=== PATIENT | female | born 1980 | race Caucasian/White ===

== ENCOUNTER 2016-07-05 14:17 | Emergency (ER) | payer MEDICAID, OTHER ==
--- NOTE | 2016-07-05 16:05 | ED.PDOC ---
History of Present Illness - General Chief Complaint: Respiratory Problem Stated Complaint: cough /congestion Time Seen by Provider: 07/05/16 16:04 Source: patient - History of Present Illness Allergies/Adverse Reactions: Allergies Eggs or Egg-derived Products Allergy (Verified 01/27/16 17:44) Wasp Venom Protein Adverse Reaction (Verified 01/27/16 17:44) Home Medications: Ambulatory Orders Imitrex 03/22/16 Mirapex 03/22/16 Mobic 03/22/16 Topamax 03/22/16 Past Medical History (General) - Patient Medical History Hx Seizures: No Hx Stroke: No Hx Dementia: No Hx Asthma: Yes Hx of COPD: No Hx Cardiac Disorders: No Hx Congestive Heart Failure: No Hx Pacemaker: No Hx Hypertension: Yes Hx Thyroid Disease: No Hx Diabetes: No Hx Gastroesophageal Reflux: No Hx Renal Disease: No Hx Cancer: No Hx of HIV: No Hx Hepatitis C: No Hx MRSA: No MRSA Source:: incision - Vaccination History Hx Tetanus, Diphtheria Vaccination: No Hx Influenza Vaccination: Yes - 2014 Hx Pneumococcal Vaccination: No - Social History Hx Tobacco Use: No - Female History Patient : No - tubal Family Medical History - Family History Mother Family History: Unknown Living Status: Unknown Departure - Departure Time of Disposition: 16:09 Disposition: Left Without Being Seen Home Medications: Ambulatory Orders Imitrex 03/22/16 Mirapex 03/22/16 Mobic 03/22/16 Topamax 03/22/16
--- NOTE | 2016-07-05 17:29 | ED.PDOC ---
History of Present Illness - General Chief Complaint: Respiratory Problem Stated Complaint: COUGH AND CONGESTION Time Seen by Provider: 07/05/16 16:04 Source: patient Exam Limitations: no limitations - History of Present Illness Initial Comments: stated that she got sick 5 days ago with cough /congestion which had bee getting worse,and also mom with flu like symptoms she was exposed . Timing/Duration: other - 5 days ago Severity: moderate Possible Cause: no prior episodes Improving Factors: nothing Worsening Factors: nothing Associated Symptoms: cough, nasal congestion Respiratory Risk Factors: exposure to illness Allergies/Adverse Reactions: Allergies Eggs or Egg-derived Products Allergy (Verified 01/27/16 17:44) Wasp Venom Protein Adverse Reaction (Verified 01/27/16 17:44) Home Medications: Ambulatory Orders Imitrex 03/22/16 Mirapex 03/22/16 Mobic 03/22/16 Topamax 03/22/16 Chlorpheniramine Maleate [Chlor-Trimeton] 8 mg PO TID #60 tab 07/05/16 Dextromet/Guaifenesin 600/30 T [Mucinex Dm 600/30MG] 1 tab PO BID #60 tab predniSONE [Prednisone] 10 mg PO BID #14 tab 07/05/16 Review of Systems - Review of Systems Constitutional: States: no symptoms reported EENTM: States: see HPI, nose congestion Respiratory: States: see HPI, cough Cardiology: States: no symptoms reported Gastrointestinal/Abdominal: States: no symptoms reported Genitourinary: States: no symptoms reported Musculoskeletal: States: joint pain Skin: States: no symptoms reported Hematologic/Lymphatic: States: no symptoms reported Past Medical History (General) - Patient Medical History Hx Seizures: No Hx Stroke: No Hx Dementia: No Hx Asthma: Yes Hx of COPD: No Hx Cardiac Disorders: No Hx Congestive Heart Failure: No Hx Pacemaker: No Hx Hypertension: Yes Hx Thyroid Disease: No Hx Diabetes: No Hx Gastroesophageal Reflux: No Hx Renal Disease: No Hx Cancer: No Hx of HIV: No Hx Hepatitis C: No Hx MRSA: No MRSA Source:: incision Surgical History: cholecystectomy, other - ,back,btl - Vaccination History Hx Tetanus, Diphtheria Vaccination: No Hx Influenza Vaccination: Yes - 2015 Hx Pneumococcal Vaccination: No - Social History Hx Tobacco Use: No - Female History Patient : No - tubal Family Medical History - Family History Mother Family History: Unknown Living Status: Unknown Hx Family Asthma: Yes Physical Exam - Physical Exam General Appearance: Alert, No apparent distress ENT Exam: hearing grossly normal, TMs normal, nasal congestion Neck: non-tender, supple, normal inspection, trachea midline Respiratory: chest non-tender, no respiratory distress, no accessory muscle use , wheezing - mild Cardiovascular/Chest: normal peripheral pulses, regular rate, rhythm, no edema, no gallop, no JVD Gastrointestinal/Abdominal: normal bowel sounds, non tender, soft Extremity: non-tender, normal inspection, no pedal edema, no calf tenderness Neurologic: alert, normal mood/affect, oriented x 3 Skin Exam: normal color, warm/dry, cyanosis Progress - Results/Orders Results/Orders: 07/05/16 17:34 INFLUENZA A & B ANTIGEN Stat Chest,2 Views [RAD] Stat Laboratory Results WBC 7.7 K/mm3 (4.8-10.8) 07/05/16 17:50 RBC 4.58 M/mm3 (4.20-5.40) 07/05/16 17:50 Hgb 14.3 gm/dL (12.0-16.0) 07/05/16 17:50 Hct 41.9 % (36.0-47.0) 07/05/16 17:50 MCV 91.4 fl (81.0-99.0) 07/05/16 17:50 MCH 31.3 pg (27.0-31.0) H 07/05/16 17:50 MCHC 34.2 g/dL (33.0-37.0) 07/05/16 17:50 RDW 12.9 % (11.5-14.5) 07/05/16 17:50 Plt Count 218 K/mm3 (130-400) 07/05/16 17:50 MPV 8.0 fl (7.40-10.4) 07/05/16 17:50 Absolute Neuts (auto) 4.80 K/uL (1.8-6.8) 07/05/16 17:50 Absolute Lymphs (auto) 1.90 K/uL (1.0-3.4) 07/05/16 17:50 Absolute Monos (auto) 0.50 K/uL (0.2-0.8) 07/05/16 17:50 Absolute Eos (auto) 0.40 K/uL (0.0-0.4) 07/05/16 17:50 Absolute Basos (auto) 0.10 K/uL (0.0-0.1) 07/05/16 17:50 Neutrophils % 62.3 % (42.0-78.0) 07/05/16 17:50 Lymphocytes % 24.7 % (20.0-50.0) 07/05/16 17:50 Monocytes % 6.5 % (2.0-9.0) 07/05/16 17:50 Eosinophils % 5.5 % (1.0-5.0) H 07/05/16 17:50 Basophils % 1.0 % (0.0-2.0) 07/05/16 17:50 FLU SWAB NEGATIVE - EKG/XRAY/CT XRAY: chest - no acute abnormality noted Departure - Departure Clinical Impression: Bronchitis with asthma, acute Time of Disposition: 19:22 Disposition: Left Without Being Seen Condition: Good Departure Forms: ED Discharge - Pt. Copy, Patient Portal Self Enrollment Instructions: Tips for Controlling Your Asthma, Asthma -- Adult Prescriptions: Chlorpheniramine Maleate [Chlor-Trimeton] 8 mg PO TID #60 tab Dextromet/Guaifenesin 600/30 T [Mucinex Dm 600/30MG] 1 tab PO BID #60 tab predniSONE [Prednisone] 10 mg PO BID #14 tab Home Medications: Ambulatory Orders Imitrex 03/22/16 Mirapex 03/22/16 Mobic 03/22/16 Topamax 03/22/16 Chlorpheniramine Maleate [Chlor-Trimeton] 8 mg PO TID #60 tab 07/05/16 Dextromet/Guaifenesin 600/30 T [Mucinex Dm 600/30MG] 1 tab PO BID #60 tab predniSONE [Prednisone] 10 mg PO BID #14 tab 07/05/16 Additional Instructions: RETURN TO EMERGENCY ROOM NEEDED; FOLLOW UP WITH PRIMARY MD 07/07/2016 PATIENT TO CALL FOR APPOINTMENT
--- NOTE | 2016-07-05 18:18 | RAD ---
EXAM DESCRIPTION: XR CHEST 2 VIEWS CLINICAL HISTORY: cough COMPARISON: January 27, 2016. FINDINGS: Cardiac silhouette is within normal limits. There is no focal parenchymal or pleural disease. There is no acute osseous process visualized. Partial absence of the distal left clavicle could be related to prior surgery. Linear opacity in the left mid lung may represent scar versus subsegmental atelectasis. IMPRESSION: Linear opacity in the left mid lung may represent scar versus subsegmental atelectasis. Electronically signed by: Robles Vann 07/05/2016 18:15
[2016-07-05 18:52] VITALS: TEMP 97.6
[2016-07-05] MEDS ORDERED: predniSONE 10 MG TAB PO ONE (19:32)
[2016-07-05] MEDS ORDERED: HYDROcodone 10MG/APAP 325MG 1 EA TAB PO ONE (19:43)
[2016-07-05 20:33] VITALS: O2SAT 98
[2016-07-05 20:37] VITALS: BP 110/70
== END 2016-07-05 20:30 | disposition left against medical advice (07) ==
LOC: ER 14:17
DX: J45.909 Unspecified asthma, uncomplicated (principal); I10 Essential (primary) hypertension; Z91.012 Allergy to eggs; Z91.030 Bee allergy status
CPT/HCPCS: 36415; 71020; 85025; 87804; J7512

== ENCOUNTER 2016-07-16 07:31 | Emergency (ER) | payer MEDICAID, OTHER ==
[2016-07-16] MEDS ORDERED: KETOROLAC TROMETHAMINE INJ 30 MG/ML VIAL IM ONE ×2 (07:45→07:46)
--- NOTE | 2016-07-16 07:51 | ED.PDOC ---
History of Present Illness - General Chief Complaint: Back Pain or Injury Stated Complaint: lower back pain Time Seen by Provider: 07/16/16 07:40 Source: patient Exam Limitations: no limitations - History of Present Illness Initial Comments: Patient is a 35 yo s/p cholecystectomy and multiple low back surgeries who presents with one day of right flank pain. It started in the flank and has since progressed to radiating to the right lower quadrant. Is constant but intermittent in intensity. Sharp in nature. No exacerbating nor alleviating factors. She says it seems to be independent of what she does. Is not like her previous back pain. Not associated with eating/drinking/N/V/D. Last bm yesterday which was normal with no blood. No hematuria/nocturia/dysuria/ frequency. No history of nephrolithiasis nor uretrolithiasis. No associated symptoms. Timing/Duration: 24 hours Severity: moderate Improving Factors: nothing Worsening Factors: nothing Associated Symptoms: denies symptoms Allergies/Adverse Reactions: Allergies Eggs or Egg-derived Products Allergy (Verified 01/27/16 17:44) Wasp Venom Protein Adverse Reaction (Verified 01/27/16 17:44) Home Medications: Ambulatory Orders NK [NK] 07/16/16 Review of Systems - Review of Systems Constitutional: States: no symptoms reported EENTM: States: no symptoms reported Respiratory: States: no symptoms reported Cardiology: States: no symptoms reported Gastrointestinal/Abdominal: States: no symptoms reported Genitourinary: States: no symptoms reported Musculoskeletal: States: see HPI Skin: States: no symptoms reported Neurological: States: no symptoms reported Endocrine: States: no symptoms reported Hematologic/Lymphatic: States: no symptoms reported Past Medical History (General) - Patient Medical History Hx Seizures: No Hx Stroke: No Hx Dementia: No Hx Asthma: Yes Hx of COPD: No Hx Cardiac Disorders: No Hx Congestive Heart Failure: No Hx Pacemaker: No Hx Hypertension: Yes Hx Thyroid Disease: No Hx Diabetes: No Hx Gastroesophageal Reflux: No Hx Renal Disease: No Hx Cancer: No Hx of HIV: No Hx Hepatitis C: No Hx MRSA: No MRSA Source:: incision Surgical History: cholecystectomy - Vaccination History Hx Tetanus, Diphtheria Vaccination: No Hx Influenza Vaccination: No Hx Pneumococcal Vaccination: No - Social History Hx Tobacco Use: Yes Hx Alcohol Use: No Hx Substance Use: No Hx Depression: No - Female History Patient is a Female of Child Bearing Age (10 -59 yrs old): Yes Patient : No - tubal Family Medical History - Family History Mother Family History: Unknown Living Status: Unknown Hx Family Asthma: Yes Physical Exam - Physical Exam General Appearance: Alert Neck: non-tender, full range of motion, supple Respiratory: chest non-tender, lungs clear, normal breath sounds Cardiovascular/Chest: normal peripheral pulses, regular rate, rhythm, no edema Gastrointestinal/Abdominal: normal bowel sounds, soft, tenderness - TTP over periumbilical region, other - Negative Rovsin's sign. Back Exam: normal inspection, no CVA tenderness, no vertebral tenderness Extremity: no pedal edema Skin Exam: normal color Lymphatic: no adenopathy Progress - Progress Progress: 07/16/16 07:52 Toradol 30 mg IM x one. 07/16/16 08:56 UA positive for blood, leukocytes, LE, nitrites. wbc wnl 07/16/16 09:48 CT showed stranding around the appendix. No nephrolithiasis. Patient given Zosyn 3.375 IV x one and Aztreonam 1 gram IV x one. NS started at 150 ml/hour. Patient transferred to [facility] in [place] for surgical consult. Departure - Departure Clinical Impression: Appendicitis Disposition: Transfer to Hospital Condition: Good Departure Forms: ED Discharge - Pt. Copy, Patient Portal Self Enrollment Diet: other - NPO Activity: other - as per surgical consult Referrals: SALLY GRAY [Primary Care Provider] - 1-2 Weeks Home Medications: Ambulatory Orders NK [NK] 07/16/16
[2016-07-16] MEDS ORDERED: MORPHINE SULFATE INJ 10 MG/ML VIAL IV ONE (08:56)
--- NOTE | 2016-07-16 09:36 | CT ---
EXAM DESCRIPTION: Abdomen and pelvis CT. CLINICAL HISTORY: Abdominal pain. COMPARISON: None. TECHNIQUE: A noncontrast volumetric CT was acquired and displayed in multiplanar reconstructions. Note that the sensitivity of this exam is slightly diminished without contrast. FINDINGS: GI: Strandy changes noted adjacent to the tip of the appendix. The colon is otherwise unremarkable. Small bowel is unobstructed. Liver: Fatty infiltration of the liver. Liver is also enlarged measuring 20 cm in diameter. Biliary: Patient is status post cholecystectomy. Spleen: Splenomegaly. The spleen measures 15 cm in diameter. Pancreas: Unremarkable. Adrenal Glands: No significant nodularity. Kidneys: No hydronephrosis or urolithiasis. Pelvic organs: Unremarkable. Bones: No suspicious lesion/fracture. Lymph nodes: No enlarged lymph nodes. Lung bases: No significant consolidation or nodularity. IMPRESSION: Strandy changes noted adjacent to the tip of the appendix. This can be seen in setting of appendicitis. No evidence of abscess. No evidence of perforation. No renal stones noted on today's exam. Fatty infiltration of the liver noted. There is also hepatosplenomegaly. Electronically signed by: Ha Nick MD 07/16/2016 09:34
[2016-07-16] MEDS ORDERED: PIPERACILLIN/TAZOBACTAM 3.375 GM in SODIUM CHLORIDE 0.9% 100ML 100 ML IVPB ONE (09:46)
[2016-07-16] MEDS ORDERED: AZTREONAM 1 GM in SODIUM CHL 0.9% 50ML MIN-BAG+ 50 ML IVPB ONE (09:46)
[2016-07-16] MEDS ORDERED: SODIUM CHLORIDE 0.9% 1000ML 1,000 ML IVS PRN (09:47)
[2016-07-16] MEDS ORDERED: AZTREONAM 1 GM VIAL ONE (09:50)
[2016-07-16] MEDS ORDERED: SODIUM CHLORIDE 0.9% 100ML 100 ML IVPB ONE (09:50)
[2016-07-16] MEDS ORDERED: PIPERACILLIN/TAZOBACTAM 3.375 GM VIAL IVPB ONE (09:50)
[2016-07-16] MEDS ORDERED: SODIUM CHL 0.9% 50ML MIN-BAG+ 50 ML IVPB ONE (09:50)
[2016-07-16] MEDS ORDERED: ONDANSETRON INJ 4 MG/2 ML VIAL IV ONE (09:54)
[2016-07-16 10:26] VITALS: BP 114/75; TEMP 97.5; O2SAT 95
== END 2016-07-16 10:26 | disposition short-term general hospital (02) ==
LOC: ER 07:31
DX: K37 Unspecified appendicitis (principal); J45.909 Unspecified asthma, uncomplicated; I10 Essential (primary) hypertension; Z91.030 Bee allergy status; Z91.012 Allergy to eggs; Z87.891 Personal history of nicotine dependence
CPT/HCPCS: 36415; 74176; 80053; 81001; 81025; 83690; 85025; 87086; 87088; 87186; J1885; J2270; J2405; J2543; J7030; J7050

== ENCOUNTER 2016-08-04 21:39 | Emergency (ER) | payer OTHER ==
[2016-08-04 21:59] VITALS: TEMP 98.2; O2SAT 96
[2016-08-04] MEDS ORDERED: ONDANSETRON INJ 4 MG/2 ML VIAL IV ONE (22:33)
[2016-08-04] MEDS ORDERED: SODIUM CHLORIDE 0.9% 1000ML 1,000 ML IVS ONE (22:33)
[2016-08-04] MEDS ORDERED: KETOROLAC TROMETHAMINE INJ 30 MG/ML VIAL IV ONE (23:08)
--- NOTE | 2016-08-05 00:37 | ED.PDOC ---
History of Present Illness - General Chief Complaint: GI Problem Stated Complaint: nausea vomiting Time Seen by Provider: 08/04/16 22:15 Source: patient, RN notes reviewed, Vital Signs reviewed - History of Present Illness Initial Comments: This 35 y/o female has had nausea/vomiting and diarrhea for the past week. She vomits about twice daily and has 3-4 episodes of diarrhea. She had an appendectomy July 16, 2016 and felt ok after that. She has a headache today , although this just started today. She has had a cholecystectomy. Timing/Duration: 1 week, getting worse Severity: moderate Improving Factors: nothing Worsening Factors: eating Associated Symptoms: headaches, loss of appetite, nausea/vomiting Allergies/Adverse Reactions: Allergies Eggs or Egg-derived Products Allergy (Verified 08/04/16 21:49) Wasp Venom Protein Adverse Reaction (Verified 08/04/16 21:49) Home Medications: Ambulatory Orders Ondansetron [Zofran Odt] 4 mg PO Q8H PRN #10 tab 08/05/16 Potassium Chloride [Potassium Chloride ER] 20 meq PO DAILY #7 tab 08/05/16 Review of Systems - Review of Systems Constitutional: States: no symptoms reported EENTM: States: no symptoms reported Respiratory: States: no symptoms reported Cardiology: States: no symptoms reported Gastrointestinal/Abdominal: States: diarrhea, nausea, vomiting Genitourinary: States: no symptoms reported Musculoskeletal: States: no symptoms reported Skin: States: no symptoms reported Neurological: States: headache Endocrine: States: no symptoms reported Hematologic/Lymphatic: States: no symptoms reported All other Systems: Reviewed and Negative Past Medical History (General) - Patient Medical History Hx Seizures: No Hx Stroke: No Hx Dementia: No Hx Asthma: No Hx of COPD: No Hx Cardiac Disorders: No Hx Congestive Heart Failure: No Hx Pacemaker: No Hx Hypertension: No Hx Thyroid Disease: No Hx Diabetes: No Hx Gastroesophageal Reflux: No Hx Renal Disease: No Hx Cancer: No Hx of HIV: No Hx Hepatitis C: No Hx MRSA: No MRSA Source:: incision Surgical History: appendectomy, cholecystectomy, other - Vaccination History Hx Tetanus, Diphtheria Vaccination: No Hx Influenza Vaccination: No Hx Pneumococcal Vaccination: No - Social History Hx Tobacco Use: No Hx Alcohol Use: No Hx Substance Use: No Hx Substance Use Treatment: No Hx Depression: No - Activities of Daily Living Hospice Agency (if applicable):: None - Female History Patient : No - tubal - Triage Comment ED Triage Comment: face appears flushed Family Medical History - Family History Mother Family History: Unknown Living Status: Unknown Hx Family Asthma: Yes Physical Exam - Physical Exam General Appearance: Alert, Other - mild distress Ears, Nose, Throat: hearing grossly normal Respiratory: lungs clear, normal breath sounds, no respiratory distress, no accessory muscle use Cardiovascular/Chest: regular rate, rhythm, no edema, no gallop, no murmur Gastrointestinal/Abdominal: normal bowel sounds, non tender, soft, no organomegaly, no pulsatile mass Back Exam: no CVA tenderness Extremity: normal range of motion, non-tender, normal inspection, no pedal edema , no calf tenderness Neurologic: alert, normal mood/affect, oriented x 3 Skin Exam: normal color, warm/dry Progress - Results/Orders Results/Orders: 08/04/16 08/04/16 21:51 23:36 Temperature 98.2 F Pulse Rate [ 79 76 left] Respiratory 18 18 Rate Blood Pressure 133/91 137/78 [left] O2 Sat by Pulse 96 96 Oximetry Laboratory Results WBC 10.0 K/mm3 (4.8-10.8) 08/04/16 22:34 RBC 5.13 M/mm3 (4.20-5.40) 08/04/16 22:34 Hgb 16.1 gm/dL (12.0-16.0) H 08/04/16 22:34 Hct 46.7 % (36.0-47.0) 08/04/16 22:34 MCV 90.9 fl (81.0-99.0) 08/04/16 22:34 MCH 31.3 pg (27.0-31.0) H 08/04/16 22:34 MCHC 34.4 g/dL (33.0-37.0) 08/04/16 22:34 RDW 12.9 % (11.5-14.5) 08/04/16 22:34 Plt Count 275 K/mm3 (130-400) 08/04/16 22:34 MPV 8.1 fl (7.40-10.4) 08/04/16 22:34 Absolute Neuts (auto) 6.90 K/uL (1.8-6.8) H 08/04/16 22:34 Absolute Lymphs (auto) 2.20 K/uL (1.0-3.4) 08/04/16 22:34 Absolute Monos (auto) 0.60 K/uL (0.2-0.8) 08/04/16 22:34 Absolute Eos (auto) 0.30 K/uL (0.0-0.4) 08/04/16 22:34 Absolute Basos (auto) 0.10 K/uL (0.0-0.1) 08/04/16 22:34 Neutrophils % 68.3 % (42.0-78.0) 08/04/16 22:34 Lymphocytes % 21.9 % (20.0-50.0) 08/04/16 22:34 Monocytes % 5.8 % (2.0-9.0) 08/04/16 22:34 Eosinophils % 3.4 % (1.0-5.0) 08/04/16 22:34 Basophils % 0.6 % (0.0-2.0) 08/04/16 22:34 Sodium 137 mmol/L (135-145) 08/04/16 22:34 Potassium 3.2 mmol/L (3.6-5.0) L 08/04/16 22:34 Chloride 103 mmol/L (101-111) 08/04/16 22:34 Carbon Dioxide 29 mmol/L (21-31) 08/04/16 22:34 Anion Gap 8.2 (12-18) L 08/04/16 22:34 BUN 7 mg/dL (7-18) 08/04/16 22:34 Creatinine 0.75 mg/dL (0.6-1.3) 08/04/16 22:34 BUN/Creatinine Ratio 9.3 (10-20) L 08/04/16 22:34 Random Glucose 114 mg/dL (70-105) H 08/04/16 22:34 Serum Osmolality 272.7 mOsm/L (275-295) L 08/04/16 22:34 Calcium 9.7 mg/dL (8.4-10.2) 08/04/16 22:34 Total Bilirubin 1.0 mg/dL (0.2-1.0) 08/04/16 22:34 AST 35 IU/L (10-42) 08/04/16 22:34 ALT 33 IU/L (10-60) 08/04/16 22:34 Alkaline Phosphatase 58 IU/L (42-121) 08/04/16 22:34 Serum Total Protein 8.0 gm/dL (6.4-8.2) 08/04/16 22:34 Albumin 4.9 g/dl (3.2-5.5) 08/04/16 22:34 Globulin 3.1 gm/dL (2.3-3.5) 08/04/16 22:34 Albumin/Globulin Ratio 1.6 (1.1-1.9) 08/04/16 22:34 Lipase 17 U/L (22-51) L 08/04/16 22:34 Serum HCG, Qual Negative 08/04/16 23:08 Departure - Departure Clinical Impression: Gastroenteritis, Hypokalemia, gastrointestinal losses Time of Disposition: 00:43 Disposition: Discharge to Home or Self Care Condition: Fair Departure Forms: ED Discharge - Pt. Copy, Patient Portal Self Enrollment Instructions: DI for Viral Gastroenteritis -- Adult, Viral Gastroenteritis, DI for Hypokalemia, Hypokalemia Diet: bland diet Referrals: SALLY GRAY [Primary Care Provider] - 1-5 Days Prescriptions: Potassium Chloride [Potassium Chloride ER] 20 meq PO DAILY #7 tab Ondansetron [Zofran Odt] 4 mg PO Q8H PRN #10 tab PRN Reason: Nausea/Vomiting Home Medications: Ambulatory Orders Ondansetron [Zofran Odt] 4 mg PO Q8H PRN #10 tab 08/05/16 Potassium Chloride [Potassium Chloride ER] 20 meq PO DAILY #7 tab 08/05/16 Additional Instructions: Follow up in ED for any worsening of symptoms, abdominal pain, or fever.
[2016-08-05 00:59] VITALS: BP 135/76
== END 2016-08-05 00:59 | disposition home or self-care (01) ==
LOC: ER 21:39
DX: K52.9 Noninfective gastroenteritis and colitis, unspecified (principal); E87.6 Hypokalemia; Z91.030 Bee allergy status; Z91.012 Allergy to eggs
CPT/HCPCS: 80053; 83690; 84703; 85025; J1885; J2405; J7030

== ENCOUNTER 2016-10-24 18:20 | Emergency (ER) | payer OTHER ==
--- NOTE | 2016-10-24 18:44 | ED.PDOC ---
History of Present Illness - General Source: patient, RN notes reviewed, Vital Signs reviewed Exam Limitations: no limitations - History of Present Illness Initial Comments: Patient reports that symptoms started yesterday with sneezing and cough. Tried OTC allergy medication but today is feeling worse. Now with sore throat and fever to 101. No sick contacts. Timing/Duration: yesterday Fever Severity/Quality: greater than 100.5 F Fever Therapy NON CLINICAL ADVISOR: other - Allergy Medication Associated Symptoms: cough, headache, sore throat <Tamiko Barrett - Last Filed: 10/24/16 18:42> <Shaheen Le - Last Filed: 10/24/16 19:32> - General Chief Complaint: Fever Stated Complaint: sorethroat, fever Time Seen by Provider: 10/24/16 18:26 Review of Systems - Review of Systems Constitutional: States: chills, fever. Denies: diaphoresis, malaise EENTM: States: see HPI, nose congestion, throat pain Respiratory: States: cough. Denies: short of breath Cardiology: States: no symptoms reported Gastrointestinal/Abdominal: States: no symptoms reported Skin: States: no symptoms reported Neurological: States: headache <Tamiko Barrett - Last Filed: 10/24/16 18:42> Past Medical History (General) - Patient Medical History Hx Seizures: No Hx Stroke: No Hx Dementia: No Hx Asthma: No Hx of COPD: No Hx Cardiac Disorders: No Hx Congestive Heart Failure: No Hx Pacemaker: No Hx Hypertension: No Hx Thyroid Disease: No Hx Diabetes: No Hx Gastroesophageal Reflux: No Hx Renal Disease: No Hx Cancer: No Hx of HIV: No Hx Hepatitis C: No Hx MRSA: No MRSA Source:: incision Surgical History: appendectomy, cholecystectomy, other - Vaccination History Hx Tetanus, Diphtheria Vaccination: No Hx Influenza Vaccination: No Hx Pneumococcal Vaccination: No - Social History Hx Tobacco Use: No Hx Alcohol Use: No Hx Substance Use: No Hx Substance Use Treatment: No Hx Depression: No - Activities of Daily Living Hospice Agency (if applicable):: None - Female History Patient is a Female of Child Bearing Age (10 -59 yrs old): Yes Patient : No <Tamiko Barrett - Last Filed: 10/24/16 18:42> Family Medical History - Family History Mother Family History: Unknown Living Status: Unknown Hx Family Asthma: Yes <Tamiko Barrett - Last Filed: 10/24/16 18:42> Physical Exam - Physical Exam General Appearance: Alert, Comfortable, No apparent distress, Obese, Well Developed, Well Groomed, Well Hydrated, Well Nourished Eye Exam: bilateral normal ENT Exam: hearing grossly normal, TMs normal, nasal congestion, pharyngeal erythema Neck: non-tender, full range of motion, supple, normal inspection Respiratory: lungs clear, normal breath sounds, no respiratory distress, no accessory muscle use Cardiovascular/Chest: regular rate, rhythm, no gallop, no murmur Neurologic: alert, normal mood/affect, oriented x 3 Skin Exam: normal color, warm/dry Comments: Vital Signs - 24 hr 10/24/16 18:28 Temperature 99.2 F Pulse Rate [ 88 pulse ox] Respiratory 20 Rate Blood Pressure 138/90 [Left Arm] O2 Sat by Pulse 96 Oximetry <Tamiko Barrett - Last Filed: 10/24/16 18:42> Progress - Progress Progress: 10/24/16 19:30 the patient is a 35-year-old female presenting to the emergency room secondary to some sore throat and mild congestion for the last 24 hours. She does have a low-grade fever. She has tested negative for strep. Lungs are clear at this time. Diagnosis is a viral upper respiratory tract infection. She did receive 1 dose of steroids here today. She can use Motrin and Tylenol as needed to control symptoms as an outpatient. She does need to keep herself well- hydrated. ER warnings were given for any worsening. If symptoms are not improving or worsening over the next few days then she does need to follow up with her primary care doctor. otherwise follow up with her primary care doctor as previously scheduled. <Shaheen Le - Last Filed: 10/24/16 19:32> Departure <Tamiko Barrett - Last Filed: 10/24/16 18:42> - Departure Diet: regular diet Activity: increase activity as tolerated <Shaheen Le - Last Filed: 10/24/16 19:32> - Departure Clinical Impression: Upper respiratory infection Disposition: Discharge to Home or Self Care Condition: Fair Departure Forms: ED Discharge - Pt. Copy, Patient Portal Self Enrollment Instructions: DI for Viral Upper Respiratory Infection -- Adult Referrals: SALLY GRAY [Primary Care Provider] - 1-2 Weeks Home Medications: Ambulatory Orders Sumatriptan Succinate [Imitrex] 100 mg PO PRN 10/24/16 Additional Instructions: the patient is a 35-year-old female presenting to the emergency room secondary to some sore throat and mild congestion for the last 24 hours. She does have a low-grade fever. She has tested negative for strep. Lungs are clear at this time. Diagnosis is a viral upper respiratory tract infection. She did receive 1 dose of steroids here today. She can use Motrin and Tylenol as needed to control symptoms as an outpatient. She does need to keep herself well- hydrated. ER warnings were given for any worsening. If symptoms are not improving or worsening over the next few days then she does need to follow up with her primary care doctor. otherwise follow up with her primary care doctor as previously scheduled.
[2016-10-24] MEDS: methylPREDNISolone SODIUM SUC 125 MG/2 ML VIAL IM ONE (18:47)
[2016-10-24 19:58] VITALS: BP 124/86; TEMP 98.3; O2SAT 96
== END 2016-10-24 19:40 | disposition home or self-care (01) ==
LOC: ER 18:20
DX: J06.9 Acute upper respiratory infection, unspecified (principal)
CPT/HCPCS: 87070; 87651; J2930